=== PATIENT | female | born 1960 | race Caucasian/White ===

== ENCOUNTER 2017-10-09 08:05 | Outpatient (CLI) | payer BC | END 2017-10-09 08:06 | disposition home or self-care (01) | LOC: BICMAMMO 08:05 | PROVIDERS: ATTEND Family Medicine | DX: Z12.31 Encounter for screening mammogram for malignant neoplasm of breast (principal) | CPT/HCPCS: 77063; 77067 ==

== ENCOUNTER 2018-10-25 12:22 | Outpatient (CLI) | payer BC ==
--- NOTE | 2018-10-25 13:42 | MMO ---
Bilateral MAMMO Bilat Screen [facility]. CLINICAL HISTORY: Patient is 58 years old and is seen for screening. The patient has the following family history of breast cancer: maternal grandmother, malignant (generic) and paternal grandmother, malignant (generic). The patient has no personal history of cancer. The patient has a history of right Excisional Biopsy at age 39 - benign and bilateral Breast reduction at age 21. VIEWS: The views performed were: bilateral craniocaudal with tomosynthesis and bilateral mediolateral oblique with tomosynthesis. FILMS COMPARED: The present examination has been compared to prior imaging studies performed at [facility] on 09/29/2014, 10/02/2015, 10/07/2016 and 10/09/2017. MAMMOGRAM FINDINGS: There are scattered fibroglandular densities. There are no suspicious masses, suspicious calcifications, or new areas of architectural distortion. IMPRESSION: THERE IS NO MAMMOGRAPHIC EVIDENCE OF MALIGNANCY. A ROUTINE FOLLOW-UP MAMMOGRAM IN 1 YEAR IS RECOMMENDED. THE RESULTS OF THIS EXAM WERE SENT TO THE PATIENT. ACR BI-RADS Category 1 - Negative MAMMOGRAPHY NOTE: 1. A negative mammogram report should not delay a biopsy if a dominant of clinically suspicious mass is present. 2. Approximately 10% to 15% of breast cancers are not detected by mammography. 3. Adenosis and dense breasts may obscure an underlying neoplasm. Reported by: Michael MINER Electonically Signed: [id number]
== END 2018-10-25 12:23 | disposition home or self-care (01) ==
LOC: BICMAMMO 12:22
PROVIDERS: ATTEND Family Medicine
DX: Z12.31 Encounter for screening mammogram for malignant neoplasm of breast (principal); Z80.3 Family history of malignant neoplasm of breast; Z98.890 Other specified postprocedural states
CPT/HCPCS: 77063; 77067

== ENCOUNTER 2022-10-20 13:28 | Outpatient (CLI) | payer BC ==
[2022-10-20] MEDS ORDERED: Iopamidol-370 76% 500 ML MDV (1 ML CHARGE) ONE (15:15)
== END 2022-10-20 13:29 | disposition home or self-care (01) ==
LOC: BICCT 13:28
PROVIDERS: ATTEND Surgery
DX: K43.2 Incisional hernia without obstruction or gangrene (principal); K42.9 Umbilical hernia without obstruction or gangrene; K41.90 Unilateral femoral hernia, without obstruction or gangrene, not specified as recurrent
CPT/HCPCS: 74177; 82565; Q9967

== ENCOUNTER 2022-10-21 12:51 | Outpatient (CLI) | payer BC | END 2022-10-21 12:52 | disposition home or self-care (01) | LOC: BICMAMMO 12:51 | PROVIDERS: ATTEND Family Medicine | DX: Z12.31 Encounter for screening mammogram for malignant neoplasm of breast (principal); Z98.890 Other specified postprocedural states; Z91.89 Other specified personal risk factors, not elsewhere classified; Z80.3 Family history of malignant neoplasm of breast | CPT/HCPCS: 77063; 77067 ==

== ENCOUNTER 2022-11-14 07:16 | Outpatient (CLI) | payer BC ==
[2022-11-14 08:21] LABS: Hematocrit 42.3 % (34.9-44.5); Hemoglobin 14.3 g/dL (12.0-15.5); Mean Corpuscular HGB CONC 33.8 g/dL (32.0-36.0); Mean Corpuscular Hemoglobin 33.9 pg (27.0-33.0); Mean Corpuscular Volume 100.2 fl (81.6-98.3); Mean Platelet Volume 10.1 fl (7.4-10.4); Platelet Count 278 10x3/uL (150-450); RBC Distribution Width 13.3 % (11.5-14.5); Red Blood Cell (RBC) Count 4.22 10x6/uL (3.90-5.03); White Blood Cell (WBC) Count 5.5 10x3/uL (3.5-10.5)
[2022-11-14 08:38] LABS: Anion Gap 15 mmol/L (10-20); BUN (Urea Nitrogen) 15 mg/dL (9.8-20.1); Calc. Creatinine Clearance 0 mL/min (70-130); Calcium 9.3 mg/dL (7.8-10.44); Carbon Dioxide 26 mmol/L (23-31); Chloride 100 mmol/L (98-107); Estimated GFR 85; Glucose 90 mg/dL (80-115); Sodium 136 mmol/L (136-145)
[2022-11-14 08:52] LABS: MDiff Complete? YES
[2022-11-14 08:59] LABS: Band 1 % (5-11); Lymphocytes 63 % (21-51); Monocytes 8 % (0-10); Neutrophil 25 % (42-75); Reactive Lymphocytes 2 % (0-10)
[2022-11-14 09:04] LABS: Platelet Adequacy Comment Appears Adequate; RBC Morph Comment Within Normal Limits
== END 2022-11-14 07:17 | disposition home or self-care (01) ==
LOC: LABBT 07:16
PROVIDERS: ATTEND Surgery
DX: Z01.818 Encounter for other preprocedural examination (principal); K43.2 Incisional hernia without obstruction or gangrene; K40.90 Unilateral inguinal hernia, without obstruction or gangrene, not specified as recurrent
CPT/HCPCS: 80048; 85025; 93005; 93010

== ENCOUNTER 2022-11-16 09:20 | Day surgery (SDC) | payer BC ==
[2022-11-14 08:08] VITALS: BMI 22.6
[2022-11-16] MEDS ORDERED: Scopolamine 1.5 mg/72 hour Patch ONE (11:34)
[2022-11-16] MEDS ORDERED: Bupivacaine 0.25% HCL 30 ML VIAL ONE (12:38)
[2022-11-16] MEDS ORDERED: EPINEPHrine 1 MG/ML AMP ONE (12:38)
[2022-11-16] MEDS ORDERED: LevoFLOXacin 500 mg/D5W 100 ML BAG ONE (13:14)
[2022-11-16] MEDS ORDERED: fentaNYL PF 100 MCG/2 ML SYRINGE ONE (13:16)
[2022-11-16] MEDS ORDERED: ePHEDrine Sulfate 50 MG/10 ML VIAL ONE (13:28)
[2022-11-16] MEDS ORDERED: Ondansetron PF 4 MG/2 ML Vial ONE (13:28)
[2022-11-16] MEDS ORDERED: Dexamethasone 20 MG/5 ML VIAL ONE (13:28)
[2022-11-16] MEDS ORDERED: PHENYLEPHRINE-NS 100 MCG/ML 10 ML SYRINGE ONE (13:28)
[2022-11-16] MEDS ORDERED: Lidocaine 1% PF 5 ML VIAL ONE (13:28)
[2022-11-16] MEDS ORDERED: PROPOFOL 200 MG/20 ML VIAL ONE (13:28)
[2022-11-16] MEDS ORDERED: Rocuronium Bromide 10 MG/ML (10ML VIAL) ONE (13:28)
[2022-11-16] MEDS ORDERED: SUGAMMADEX SODIUM 200 MG/2 ML VIAL ONE (15:46)
[2022-11-16] MEDS ORDERED: HYDROcodone/Acetaminophen 5/325 mg Tablet ONE (17:56)
== END 2022-11-16 18:07 | disposition home or self-care (01) ==
LOC: SDC 09:20
PROVIDERS: ATTEND Surgery
PROC: 0WUF4JZ Supplement Abdominal Wall with Synthetic Substitute, Percutaneous Endoscopic Approach (ICD-10-PCS; principal; 2022-11-16)
PROC: 0YU64JZ Supplement Left Inguinal Region with Synthetic Substitute, Percutaneous Endoscopic Approach (ICD-10-PCS; principal; 2022-11-16)
DX: K40.90 Unilateral inguinal hernia, without obstruction or gangrene, not specified as recurrent (principal); K43.9 Ventral hernia without obstruction or gangrene; Z88.0 Allergy status to penicillin; Z88.2 Allergy status to sulfonamides
CPT/HCPCS: C1781; J0171; J1100; J1956; J2405; J2704; S0020

== ENCOUNTER 2023-06-08 07:32 | Outpatient (CLI) | payer BC | END 2023-06-08 07:33 | disposition home or self-care (01) | LOC: CT 07:32 | PROVIDERS: ATTEND Internal Medicine Cardiovascular Disease | DX: I74.3 Embolism and thrombosis of arteries of the lower extremities (principal); K76.89 Other specified diseases of liver | CPT/HCPCS: 74174; 82565 ==

== ENCOUNTER 2024-12-12 07:44 | Outpatient (CLI) | payer BC | END 2024-12-12 07:45 | disposition home or self-care (01) | LOC: NM 07:44 | PROVIDERS: ATTEND Internal Medicine Gastroenterology | DX: R68.81 Early satiety (principal); K30 Functional dyspepsia | CPT/HCPCS: 78264; A9541 ==